=== PATIENT | female | born 1955 | race Caucasian/White ===

== ENCOUNTER 2018-08-31 09:46 | Emergency (ER) | payer MEDICARE, SELFPAY ==
[2018-08-31] VITALS (8 sets, daily range): BP systolic 98–131; BP diastolic 68–78; PULSE 71–79; RESP 13–21; TEMP 37.4; O2SAT 96–100; BMI 21.1
--- NOTE | 2018-08-31 09:48 | ED.SYNCOPE ---
HPI - Syncope General Chief Complaint: Syncope Stated Complaint: Syncope Time Seen by Provider: 08/31/18 09:47 Source: patient and EMS Mode of arrival: EMS Limitations: no limitations History of Present Illness HPI narrative: 63-year-old nonsmoking female presents with her in the chief complaint of an episode of syncope this morning. She presented by EMS after feeling a bit funny this morning and having a syncopal episode in which she fell and hit her head on an unknown hard object. She suffered a laceration to her forehead but denies any other injury. She takes no blood thinners, denies current use of alcohol or any type of distracting injury. She states that yesterday she had her tetanus updated and felt a bit queasy upon waking this morning and when drinking coffee her nausea increased. She states that she started walking to the bathroom and the next thing she knew she woke up on the ground. She states that she did not have any chest pain leading up to this. She denies using the toilet during sepsis air. She states that she does get dizzy and lightheaded on occasion when standing up too quickly and is very nervous of needles. She did fly from [employer] [employer] relatively recently. She denies any vomiting or diarrhea. She denies any new medications or dietary change MD complaint: loss of consciousness Onset (ago): minute(s) -: second(s) Prodromal symptoms: lightheaded and nausea/vomiting Witnessed: no Injuries sustained associated with event: head Current symptoms: none and nausea Related Data Previous Rx's Medication Instructions Recorded ondansetron 4 mg PO TID-QID PRN #10 tab 08/31/18 Allergies Allergy/AdvReac Type Severity Reaction Status Date / Time No Known Drug Allergies Allergy Verified 08/31/18 11:06 Review of Systems Review of Systems All systems reviewed & are unremarkable except as noted in HPI and below Constitutional Denies chills, Denies fever(s), Denies lethargy and Denies weakness Eyes Denies change in vision, Denies eye discharge, Denies irritation and Denies loss of vision ENT Ears, Nose, Mouth, and Throat: Denies change in voice, Denies neck pain and Denies sore throat Cardiovascular Denies chest pain, Reports syncope, Denies irregular heart rhythm, Denies lightheadedness, Denies palpitations, Denies dyspnea, Denies dyspnea on exertion and Denies orthopnea Respiratory Denies cough, Denies dyspnea, Denies dyspnea on exertion and Denies wheezing Gastrointestinal Gastrointestinal: Denies abdominal pain, Denies change in bowel habits, Denies diarrhea, Denies nausea and Denies vomiting Genitourinary Denies hematuria, Denies flank pain, Denies urinary incontinence and Denies urinary urgency Musculoskeletal Denies neck pain Integumentary/Breasts Denies pruritus, Denies erythema, Denies rash and Reports wounds Neurologic Denies confusion, Reports syncope, Denies loss of vision and Denies weakness Psychiatric Denies anxiety, Denies confusion, Denies depression, Denies homicidal ideation and Denies suicidal ideation Endocrine Denies palpitations Hematologic/Lymphatic Denies easy bruising Allergic/Immunologic Denies wheezing [facility] Medical History Asthma (Chronic Unknown) Acne (Resolved) Chickenpox (Resolved) Measles (Resolved) Surgical History Hx of section (Resolved ~1989) Family History Father No problems noted. Mother No problems noted. Social History Smoking Status: Never smoker Exam Narrative Exam Narrative: 63-year-old female, a bit anxious with mild active bleeding from a forehead laceration Initial Vital Signs Initial Vital Signs: Vital Signs Temperature 99.3 F 08/31/18 09:40 Pulse Rate 76 08/31/18 09:40 Respiratory Rate 15 08/31/18 09:40 Blood Pressure 127/75 08/31/18 09:40 Pulse Oximetry 100 08/31/18 09:40 Const General: cooperative, well developed, in distress and anxious Nutritional Appearance: well nourished Orientation: alert, awake, oriented x3 and not confused HENCA Head: laceration (3cm laceration R upper forehead entering hairline) and scalp lesion Ears: external ears normal and TM's normal bilaterally Nose: external nose normal and No nasal discharge Face and sinus: sinuses nontender, face symmetric, no sinus tenderness and No dry mucous membranes Mouth: oral mucosae normal and moist mucous membranes Teeth and gingiva: dentition normal Throat: tonsils normal and uvula midline Eyes General: appearance normal, both eyes and all related structures Eyelids: eyelids normal Conjunctivae: conjunctivae normal Sclera: sclerae normal Pupils: PERRL EOM: EOM intact bilaterally Neck Neck: normal visual inspection, trachea midline, No lymphadenopathy, No midline deformity and No JVD Lymphatic: No lymphedema Chest Chest: normal inspection of the chest Resp Effort & Inspection: normal respiratory effort, able to speak in complete sentences, no respiratory distress and no use of accessory muscles Auscultation: clear to auscultation bilaterally, no rales, no rhonchi and no wheezes Cardio Rate: regular rate Rhythm: regular rhythm Heart Sounds: no click, no gallops, no murmurs and no rubs Pulses: normal peripheral pulses Back/Spine/Pelvis Back: No CVA tenderness Cervical Spine: cervical ROM normal and No pain with cervical ROM Thoracic/Lumbar Spine: thoracic and lumbar spine normal to inspection Skin Trauma: no lacerations or abrasions Neuro General: alert, oriented x3, gait normal and no focal motor deficits Speech: speech normal Extrem General: full ROM, no clubbing, cyanosis or edema, no pedal edema and no calf tenderness Psych Appearance: well kempt Mental Status: mental status grossly normal Attitude: cooperative Thought Content: normal and suicidality Judgment: judgment good Procedures Laceration Repair Laceration 1: Site: scalp Size (cm): 3 Description: stellate Depth: simple, single layer Local Anesthetic: lidocaine 1% and with epi Amount of anesthesia used (mL): 5 Pre-repair: wound explored, irrigated extensively and deep structures intact Skin layer closed with: other (emiliano - laceration at edge of hair line, and enters hairline) Scores PERC Score Age greater than or equal to 50 years: Yes Heart rate greater than or equal to 100 bpm: No Room Air O2 Sat less than 95%: No Unilateral leg swelling: No Recent trauma or surgery: No Hemoptysis: No Prior PE or DVT: No Hormone Use: No Total PERC Score: 1 Wells' Criteria for PE Clinical signs and symptoms of PE: No PE is #1 Dx or equally likely: No Heart rate > 100: No Immobilization at least 3 days or surg in previous 4 weeks: No History of PE or DVT: No Hemoptysis: No Malignancy w/Treatment within 6 months or palliative: No Wells' PE Score total: 0 Course Course Narrative: Patient initially is very nervous of needles and refuses an IV despite my recommendation. No via IV initially placed at the patient's request but given elevation in D-dimer, recent travel, low-grade fever I talked with her about pursuing the diagnosis of pulmonary embolism and she reluctantly agreed Orders Ordered: ED Orders 08/31/18 10:08 EKG-12 Lead Stat 08/31/18 10:09 CT head/brain wo con Stat 08/31/18 10:16 Complete Blood Count AUTO DIFF Stat Comprehensive Metabolic Panel Stat D Dimer Stat Magnesium Stat Troponin & CK Cardiac Panel Stat 08/31/18 10:59 CT angio chest PE protocol Stat Discontinued Medications Sodium Chloride (Normal Saline 0.9%) 1,000 mls @ 1,000 mls/hr IV BOLUS ONE Stop: 08/31/18 11:58 Last Infusion: 08/31/18 12:36 Dose: 0 mls/hr Admin: 08/31/18 11:50 Dose: 1,000 mls/hr Ondansetron HCl (Zofran) 4 mg IV Q4HR PRN PRN Reason: Nausea And Vomiting Last Admin: 08/31/18 11:50 Dose: 4 mg Vital Signs - 8 hr 08/31/18 11:00 08/31/18 11:30 08/31/18 12:03 Pulse Rate 71 75 74 Respiratory Rate 13 14 15 Blood Pressure Blood Pressure [Right Arm] 131/75 113/68 104/73 Pulse Oximetry 100 98 98 08/31/18 12:34 08/31/18 13:05 Pulse Rate 79 79 Respiratory Rate 21 20 Blood Pressure 114/70 Blood Pressure [Right Arm] 114/70 Pulse Oximetry 99 99 MDM - Syncope Differential Diagnosis Likely syncope due to orthostatic hypotension, vasovagal syncope, complete atrioventricular block, subarachnoid hemorrhage, pulmonary embolism and dehydration Medical Records Attestation: I reviewed the patient's medical records. Lab Data Attestation: I reviewed the patient's lab results. Result diagrams: 08/31/18 10:16 08/31/18 10:16 Lab Results 08/31/18 08/31/18 08/31/18 Range/Units 10:16 10:16 10:16 WBC 5.9 (4.5-11.0) X10^3/uL RBC 4.27 (4.0-5.2) X10^6/uL Hgb 13.7 (12.0-16.0) g/dL Hct 40.3 (36-46) % MCV 94.6 (80-100) fL MCH 32.2 (26-34) PG MCHC 34.1 (30-36) % RDW 13.1 (11.6-14.8) % Plt Count 139 L (150-400) X10^3/uL Neut % (Auto) 84.0 H (50-75) % Lymph % (Auto) 6.3 L (25-40) % [place] % (Auto) 7.8 (3-14) % Eos % (Auto) 1.4 L (2-4) % Baso % (Auto) 0.5 (0-2) % Neut # (Auto) 4900 (7531-4550) /uL D-Dimer 614 H (<230) ng/mL Sodium 140 (137-145) mmol/L Potassium 4.5 (3.4-5.1) mmol/L Chloride 102 (98-107) mmol/L Carbon Dioxide 27 (22-32) mmol/L BUN 15 (7-17) mg/dL Creatinine 0.80 (0.52-1.04) mg/dL Estimated GFR > 60.0 (>60) mL/min BUN/Creatinine Ratio 18.8 (6-22) Glucose 102 (80-110) mg/dL Calcium 9.2 (8.4-10.2) mg/dL Magnesium 2.0 (1.6-2.3) mg/dL Total Bilirubin 1.1 (0.2-1.3) mg/dL AST 27 (14-36) IU/L ALT 22 (9-52) IU/L Alkaline Phosphatase 62 (38-126) U/L Total Creatine Kinase 72 (30-135) U/L CK-MB (CK-2) TNP CK-MB (CK-2) Rel Index TNP Troponin I < 0.012 (0.01-0.034) ng/mL Total Protein 7.3 (6.3-8.2) g/dL Albumin 4.4 (3.5-5.0) g/dL Globulin 2.9 (1.7-4.1) g/dL Albumin/Globulin Ratio 1.5 (1.0-2.8) Imaging Data CT scan - head: Radiologist's impression: [facility] DATE TYPE STATUS AUTHOR 08/31/18 10:59 Sami Panda 08/31/18 10:09 FarzadSami Li Miramontes 63, F1 [facility] ER, ED - Main ED: R08 172.72cm 63.049kg BSA: 1.75m? BMI: 21.1kg/m? Syncope Search Chart No Known Drug Allergies ONSET Today 13:05 [place] [address] CT Scan Report Signed Patient: Li Miramontes CMR#: [id number] : [id number]:[id number] Age/Sex: 63 / FDate of Service: 08/31/18 Loc: ED Accession Number: [id number] Procedure: CT head/brain wo con Ordering Provider: Geo Hunt D.O. PROCEDURE: CT HEAD/BRAIN WO CON INDICATIONS: syncope w/head injury TECHNIQUE: Noncontrast 4.5 mm thick angled axial sections acquired from the foramen magnum to the vertex, with coronal and sagittal reformats. For radiation dose reduction, the following was used: automated exposure control, adjustment of mA and/or kV according to patient size. COMPARISON: None. FINDINGS: Image quality: Excellent. CSF spaces: Basal cisterns are patent. No extra-axial fluid collections. The ventricles are symmetric in size and shape. Brain: No intracranial bleeds or masses. There is cerebral volume loss for age, with resultant ventricular and sulcal prominence. There are periventricular and deep white matter chronic small vessel ischemic changes. There is intracranial internal carotid artery atherosclerosis. Skull and face: Calvarium and visualized facial bones appear intact, without suspicious lesions. Right frontal parietal scalp laceration is seen. Sinuses: Visualized sinuses and mastoids are clear. IMPRESSION: 1. No CT evidence of acute intracranial pathology. 2. Right frontal scalp laceration. No gross acute skull fracture. Orbital carcamo are intact. Dictated by: Sami Panda M.D. on 08/31/2018 at 10:43 Approved by: Sami Panda M.D. on 08/31/2018 at 10:44 CT scan - chest: Radiologist's impression: Li Miramontes - Patient Chart Chart [facility] Diagn[facility] DATE TYPE STATUS AUTHOR 08/31/18 10:59 Sami Panda 08/31/18 10:09 Sami Panda Mary C 63, F1 [facility] ER, ED - Main ED: R08 172.72cm 63.049kg BSA: 1.75m? BMI: 21.1kg/m? Syncope Search Chart No Known Drug Allergies ONSET Today 13:[address] [address] [address] Scan Report Signed Patient: Li Miramontes CMR#: [id number] : [id number]:[id number] Age/Sex: 63 / FDate of Service: 08/31/18 Loc: ED Accession Number: [id number] Procedure: CT angio chest PE protocol Ordering Provider: Geo Hunt D.O. PROCEDURE: CT ANGIO CHEST PE PROTOCOL INDICATIONS: syncope, flight from [place], elevated DDimer TECHNIQUE: After the administration of intravenous contrast, 2 mm thick sections acquired from the pulmonary apices to the posterior costophrenic angles. 3-dimensional maximum intensity projection (MIP) coronal and sagittal reformats were then acquired through the thorax. For radiation dose reduction, the following was used: automated exposure control, adjustment of mA and/or kV according to patient size. COMPARISON: None. FINDINGS: Image quality: Excellent. Pulmonary arteries: Pulmonary arteries are normal in size, and demonstrate no intraluminal filling defects to suggest central pulmonary embolism. Lungs and pleura: Lungs are clear. No pleural effusions or pneumothorax. Central and peripheral airways are patent. Mediastinum: Heart size is enlarged, without pericardial effusion. No mediastinal or hilar adenopathy. Thoracic aorta is normal in caliber and enhancement. Esophagus is normal in caliber, with a small hiatal hernia. Bones and chest wall: No suspicious bony lesions. Ribs and thoracic spine appear intact throughout. Thyroid gland is within normal limits. No supraclavicular adenopathy. Mildly prominent bilateral axillary lymph nodes are seen measures up to 8 mm in short axis diameter. Abdomen: Visualized upper abdominal solid organs appear normal in the early arterial phase of enhancement. Well-circumscribed fluid density structure in posterior segment of right hepatic lobe is seen measures 2.5 x 2.4 cm in size and likely represent hepatic cyst. IMPRESSION: 1. No evidence of pulmonary emboli. No thoracic aortic aneurysm or gross dissection. Mild cardiomegaly. 2. No mediastinal or hilar adenopathy. Nonspecific borderline prominent bilateral axillary lymph nodes. 3. Small size hiatal hernia. 2.5 x 2.4 cm right hepatic cyst. Dictated by: Sami Panda M.D. on 08/31/2018 11:32 Approved by: Sami Panda M.D. on 08/31/2018 at 11:38 ECG Data Attestation: I personally reviewed and interpreted this ECG as follows: MDM Narrative Medical decision making narrative: Patient with syncope after feeling a bit flushed this morning. She often gets dizzy upon standing and was nauseated this morning and had a smaller than normal breakfast. Most likely syncope of multiple factors including orthostasis, dehydration, low blood sugar. More serious causes such as SAH, arrhythmia or PE considered but thought less likely given diagnostic imaging, labs, and cardiac monitoring. Patient given thorough return precautions and was able to verbalize understanding of these precautions, with her at the bedside Discharge Plan Departure Patient Disposition: Home Clinical Impression: Syncope, Laceration of scalp Discharge Date/Time: 08/31/18 13:07 Interventions: ED Discharge Assessment Last Done: 08/31/18 13:05 Instructions: DI for Concussion, DI for Syncope in Adults (Fainting), DI for Laceration Repair Activity Restrictions/Additional Instructions: You may have a slight concussion and will likely have a mild headache and some nausea for a few days. Avoiding highly stimulating activities and even TV or computers may be helpful in minimizing your symptoms. Avoid activities that will put you at risk for another head injury for at least a week. You can take tylenol or motrin for headache or the prescription provided for nausea/vomiting. Return for worsening or persistent symptoms Please keep the wound clean and dry to the best of your ability. Please monitor for signs of infection such as redness to the skin or increasing pain. Have the emiliano removed by your doctor in about 7 days. If you are unable to get into your doctor, we would be happy to remove the emiliano in that same timeframe. A prescription for Zofran has been electronically transmitted to [facility] in [employer] on your behalf Prescriptions: New ondansetron 4 mg tablet,disintegrating 4 mg PO TID-QID PRN (Reason: nausea and vomiting) Qty: 10 RF: 0 Referrals: Avani Greene DO [Physician] -
--- NOTE | 2018-08-31 10:09 | DI.CT.S_ITS ---
PROCEDURE: CT HEAD/BRAIN WO CON INDICATIONS: syncope w/head injury TECHNIQUE: Noncontrast 4.5 mm thick angled axial sections acquired from the foramen magnum to the vertex, with coronal and sagittal reformats. For radiation dose reduction, the following was used: automated exposure control, adjustment of mA and/or kV according to patient size. COMPARISON: None. FINDINGS: Image quality: Excellent. CSF spaces: Basal cisterns are patent. No extra-axial fluid collections. The ventricles are symmetric in size and shape. Brain: No intracranial bleeds or masses. There is cerebral volume loss for age, with resultant ventricular and sulcal prominence. There are periventricular and deep white matter chronic small vessel ischemic changes. There is intracranial internal carotid artery atherosclerosis. Skull and face: Calvarium and visualized facial bones appear intact, without suspicious lesions. Right frontal parietal scalp laceration is seen. Sinuses: Visualized sinuses and mastoids are clear. IMPRESSION: 1. No CT evidence of acute intracranial pathology. 2. Right frontal scalp laceration. No gross acute skull fracture. Orbital carcamo are intact. Dictated by: Sami Panda M.D. on 08/31/2018 at 10:43 Approved by: Sami Panda M.D. on 08/31/2018 at 10:44
--- NOTE | 2018-08-31 10:12 | ED_ITS ---
HPI - Syncope General Chief Complaint: Syncope Stated Complaint: Syncope Time Seen by Provider: 08/31/18 09:47 Source: patient and EMS Mode of arrival: EMS Limitations: no limitations History of Present Illness HPI narrative: 63-year-old nonsmoking female presents with her in the chief complaint of an episode of syncope this morning. She presented by EMS after feeling a bit funny this morning and having a syncopal episode in which she fell and hit her head on an unknown hard object. She suffered a laceration to her forehead but denies any other injury. She takes no blood thinners, denies current use of alcohol or any type of distracting injury. She states that yesterday she had her tetanus updated and felt a bit queasy upon waking this morning and when drinking coffee her nausea increased. She states that she started walking to the bathroom and the next thing she knew she woke up on the ground. She states that she did not have any chest pain leading up to this. She denies using the toilet during sepsis air. She states that she does get dizzy and lightheaded on occasion when standing up too quickly and is very nervous of needles. She did fly from [employer] relatively recently. She denies any vomiting or diarrhea. She denies any new medications or dietary change MD complaint: loss of consciousness Onset (ago): minute(s) -: second(s) Prodromal symptoms: lightheaded and nausea/vomiting Witnessed: no Injuries sustained associated with event: head Current symptoms: none and nausea Related Data Previous Rx's Medication Instructions Recorded ondansetron 4 mg PO TID-QID PRN #10 tab 08/31/18 Allergies Allergy/AdvReac Type Severity Reaction Status Date / Time No Known Drug Allergies Allergy Verified 08/31/18 11:06 Review of Systems Review of Systems All systems reviewed & are unremarkable except as noted in HPI and below Constitutional Denies chills, Denies fever(s), Denies lethargy and Denies weakness Eyes Denies change in vision, Denies eye discharge, Denies irritation and Denies loss of vision ENT Ears, Nose, Mouth, and Throat: Denies change in voice, Denies neck pain and Denies sore throat Cardiovascular Denies chest pain, Reports syncope, Denies irregular heart rhythm, Denies lightheadedness, Denies palpitations, Denies dyspnea, Denies dyspnea on exertion and Denies orthopnea Respiratory Denies cough, Denies dyspnea, Denies dyspnea on exertion and Denies wheezing Gastrointestinal Gastrointestinal: Denies abdominal pain, Denies change in bowel habits, Denies diarrhea, Denies nausea and Denies vomiting Genitourinary Denies hematuria, Denies flank pain, Denies urinary incontinence and Denies urinary urgency Musculoskeletal Denies neck pain Integumentary/Breasts Denies pruritus, Denies erythema, Denies rash and Reports wounds Neurologic Denies confusion, Reports syncope, Denies loss of vision and Denies weakness Psychiatric Denies anxiety, Denies confusion, Denies depression, Denies homicidal ideation and Denies suicidal ideation Endocrine Denies palpitations Hematologic/Lymphatic Denies easy bruising Allergic/Immunologic Denies wheezing [facility] Medical History Asthma (Chronic Unknown) Acne (Resolved) Chickenpox (Resolved) Measles (Resolved) Surgical History Hx of section (Resolved ~1989) Family History Father No problems noted. Mother No problems noted. Social History Smoking Status: Never smoker Exam Narrative Exam Narrative: 63-year-old female, a bit anxious with mild active bleeding from a forehead laceration Initial Vital Signs Initial Vital Signs: Vital Signs Temperature 99.3 F 08/31/18 09:40 Pulse Rate 76 08/31/18 09:40 Respiratory Rate 15 08/31/18 09:40 Blood Pressure 127/75 08/31/18 09:40 Pulse Oximetry 100 08/31/18 09:40 Const General: cooperative, well developed, in distress and anxious Nutritional Appearance: well nourished Orientation: alert, awake, oriented x3 and not confused HENCA Head: laceration (3cm laceration R upper forehead entering hairline) and scalp lesion Ears: external ears normal and TM's normal bilaterally Nose: external nose normal and No nasal discharge Face and sinus: sinuses nontender, face symmetric, no sinus tenderness and No dry mucous membranes Mouth: oral mucosae normal and moist mucous membranes Teeth and gingiva: dentition normal Throat: tonsils normal and uvula midline Eyes General: appearance normal, both eyes and all related structures Eyelids: eyelids normal Conjunctivae: conjunctivae normal Sclera: sclerae normal Pupils: PERRL EOM: EOM intact bilaterally Neck Neck: normal visual inspection, trachea midline, No lymphadenopathy, No midline deformity and No JVD Lymphatic: No lymphedema Chest Chest: normal inspection of the chest Resp Effort & Inspection: normal respiratory effort, able to speak in complete sentences, no respiratory distress and no use of accessory muscles Auscultation: clear to auscultation bilaterally, no rales, no rhonchi and no wheezes Cardio Rate: regular rate Rhythm: regular rhythm Heart Sounds: no click, no gallops, no murmurs and no rubs Pulses: normal peripheral pulses Back/Spine/Pelvis Back: No CVA tenderness Cervical Spine: cervical ROM normal and No pain with cervical ROM Thoracic/Lumbar Spine: thoracic and lumbar spine normal to inspection Skin Trauma: no lacerations or abrasions Neuro General: alert, oriented x3, gait normal and no focal motor deficits Speech: speech normal Extrem General: full ROM, no clubbing, cyanosis or edema, no pedal edema and no calf tenderness Psych Appearance: well kempt Mental Status: mental status grossly normal Attitude: cooperative Thought Content: normal and suicidality Judgment: judgment good Procedures Laceration Repair Laceration 1: Site: scalp Size (cm): 3 Description: stellate Depth: simple, single layer Local Anesthetic: lidocaine 1% and with epi Amount of anesthesia used (mL): 5 Pre-repair: wound explored, irrigated extensively and deep structures intact Skin layer closed with: other (emiliano - laceration at edge of hair line, and enters hairline) Scores PERC Score Age greater than or equal to 50 years: Yes Heart rate greater than or equal to 100 bpm: No Room Air O2 Sat less than 95%: No Unilateral leg swelling: No Recent trauma or surgery: No Hemoptysis: No Prior PE or DVT: No Hormone Use: No Total PERC Score: 1 Wells' Criteria for PE Clinical signs and symptoms of PE: No PE is #1 Dx or equally likely: No Heart rate > 100: No Immobilization at least 3 days or surg in previous 4 weeks: No History of PE or DVT: No Hemoptysis: No Malignancy w/Treatment within 6 months or palliative: No Wells' PE Score total: 0 Course Course Narrative: Patient initially is very nervous of needles and refuses an IV despite my recommendation. No via IV initially placed at the patient's request but given elevation in D-dimer, recent travel, low-grade fever I talked with her about pursuing the diagnosis of pulmonary embolism and she reluctantly agreed Orders Ordered: ED Orders 08/31/18 10:08 EKG-12 Lead Stat 08/31/18 10:09 CT head/brain wo con Stat 08/31/18 10:16 Complete Blood Count AUTO DIFF Stat Comprehensive Metabolic Panel Stat D Dimer Stat Magnesium Stat Troponin & CK Cardiac Panel Stat 08/31/18 10:59 CT angio chest PE protocol Stat Discontinued Medications Sodium Chloride (Normal Saline 0.9%) 1,000 mls @ 1,000 mls/hr IV BOLUS ONE Stop: 08/31/18 11:58 Last Infusion: 08/31/18 12:36 Dose: 0 mls/hr Admin: 08/31/18 11:50 Dose: 1,000 mls/hr Ondansetron HCl (Zofran) 4 mg IV Q4HR PRN PRN Reason: Nausea And Vomiting Last Admin: 08/31/18 11:50 Dose: 4 mg Vital Signs - 8 hr 08/31/18 11:00 08/31/18 11:30 08/31/18 12:03 Pulse Rate 71 75 74 Respiratory Rate 13 14 15 Blood Pressure Blood Pressure [Right Arm] 131/75 113/68 104/73 Pulse Oximetry 100 98 98 08/31/18 12:34 08/31/18 13:05 Pulse Rate 79 79 Respiratory Rate 21 20 Blood Pressure 114/70 Blood Pressure [Right Arm] 114/70 Pulse Oximetry 99 99 MDM - Syncope Differential Diagnosis Likely syncope due to orthostatic hypotension, vasovagal syncope, complete atrioventricular block, subarachnoid hemorrhage, pulmonary embolism and dehydration Medical Records Attestation: I reviewed the patient's medical records. Lab Data Attestation: I reviewed the patient's lab results. Result diagrams: 08/31/18 10:16 08/31/18 10:16 Lab Results 08/31/18 08/31/18 08/31/18 Range/Units 10:16 10:16 10:16 WBC 5.9 (4.5-11.0) X10^3/uL RBC 4.27 (4.0-5.2) X10^6/uL Hgb 13.7 (12.0-16.0) g/dL Hct 40.3 (36-46) % MCV 94.6 (80-100) fL MCH 32.2 (26-34) PG MCHC 34.1 (30-36) % RDW 13.1 (11.6-14.8) % Plt Count 139 L (150-400) X10^3/uL Neut % (Auto) 84.0 H (50-75) % Lymph % (Auto) 6.3 L (25-40) % [place] % (Auto) 7.8 (3-14) % Eos % (Auto) 1.4 L (2-4) % Baso % (Auto) 0.5 (0-2) % Neut # (Auto) 4900 (9211-5661) /uL D-Dimer 614 H (<230) ng/mL Sodium 140 (137-145) mmol/L Potassium 4.5 (3.4-5.1) mmol/L Chloride 102 (98-107) mmol/L Carbon Dioxide 27 (22-32) mmol/L BUN 15 (7-17) mg/dL Creatinine 0.80 (0.52-1.04) mg/dL Estimated GFR > 60.0 (>60) mL/min BUN/Creatinine Ratio 18.8 (6-22) Glucose 102 (80-110) mg/dL Calcium 9.2 (8.4-10.2) mg/dL Magnesium 2.0 (1.6-2.3) mg/dL Total Bilirubin 1.1 (0.2-1.3) mg/dL AST 27 (14-36) IU/L ALT 22 (9-52) IU/L Alkaline Phosphatase 62 (38-126) U/L Total Creatine Kinase 72 (30-135) U/L CK-MB (CK-2) TNP CK-MB (CK-2) Rel Index TNP Troponin I < 0.012 (0.01-0.034) ng/mL Total Protein 7.3 (6.3-8.2) g/dL Albumin 4.4 (3.5-5.0) g/dL Globulin 2.9 (1.7-4.1) g/dL Albumin/Globulin Ratio 1.5 (1.0-2.8) Imaging Data CT scan - head: Radiologist's impression: [facility] DATE TYPE STATUS AUTHOR 08/31/18 10:59 Sami Panda 08/31/18 10:09 FarzadSami Li Miramontes 63, F1 [facility], ED - Main ED: R08 172.72cm 63.049kg BSA: 1.75m? BMI: 21.1kg/m? Syncope Search Chart No Known Drug Allergies ONSET Today 13:05 [place] [address] CT Scan Report Signed Patient: Li Miramontes CMR#: [id number] : [id number]:[id number] Age/Sex: 63 / FDate of Service: 08/31/18 Loc: ED Accession Number: [id number] Procedure: CT head/brain wo con Ordering Provider: Geo Hunt D.O. PROCEDURE: CT HEAD/BRAIN WO CON INDICATIONS: syncope w/head injury TECHNIQUE: Noncontrast 4.5 mm thick angled axial sections acquired from the foramen magnum to the vertex, with coronal and sagittal reformats. For radiation dose reduction, the following was used: automated exposure control, adjustment of mA and/or kV according to patient size. COMPARISON: None. FINDINGS: Image quality: Excellent. CSF spaces: Basal cisterns are patent. No extra-axial fluid collections. The ventricles are symmetric in size and shape. Brain: No intracranial bleeds or masses. There is cerebral volume loss for age , with resultant ventricular and sulcal prominence. There are periventricular and deep white matter chronic small vessel ischemic changes. There is intracranial internal carotid artery atherosclerosis. Skull and face: Calvarium and visualized facial bones appear intact, without suspicious lesions. Right frontal parietal scalp laceration is seen. Sinuses: Visualized sinuses and mastoids are clear. IMPRESSION: 1. No CT evidence of acute intracranial pathology. 2. Right frontal scalp laceration. No gross acute skull fracture. Orbital carcamo are intact. Dictated by: Sami Panda M.D. on 08/31/2018 at 10:43 Approved by: Sami Panda M.D. on 08/31/2018 at 10:44 CT scan - chest: Radiologist's impression: Li Miramontes - Patient Chart Chart [facility]er Diagn[facility] DATE TYPE STATUS AUTHOR 08/31/18 10:59 Sami Panda 08/31/18 10:09 Sami Panda Mary C 63, F1 [facility] ER, ED - Main ED: R08 172.72cm 63.049kg BSA: 1.75m? BMI: 21.1kg/m? Syncope Search Chart No Known Drug Allergies ONSET Today 13:[address] [address] [address] Scan Report Signed Patient: Li Miramontes CMR#: [id number] : [id number]:[id number] Age/Sex: 63 / FDate of Service: 08/31/18 Loc: ED Accession Number: [id number] Procedure: CT angio chest PE protocol Ordering Provider: Geo Hunt D.O. PROCEDURE: CT ANGIO CHEST PE PROTOCOL INDICATIONS: syncope, flight from [place], elevated DDimer TECHNIQUE: After the administration of intravenous contrast, 2 mm thick sections acquired from the pulmonary apices to the posterior costophrenic angles. 3-dimensional maximum intensity projection (MIP) coronal and sagittal reformats were then acquired through the thorax. For radiation dose reduction, the following was used: automated exposure control, adjustment of mA and/or kV according to patient size. COMPARISON: None. FINDINGS: Image quality: Excellent. Pulmonary arteries: Pulmonary arteries are normal in size, and demonstrate no intraluminal filling defects to suggest central pulmonary embolism. Lungs and pleura: Lungs are clear. No pleural effusions or pneumothorax. Central and peripheral airways are patent. Mediastinum: Heart size is enlarged, without pericardial effusion. No mediastinal or hilar adenopathy. Thoracic aorta is normal in caliber and enhancement. Esophagus is normal in caliber, with a small hiatal hernia. Bones and chest wall: No suspicious bony lesions. Ribs and thoracic spine appear intact throughout. Thyroid gland is within normal limits. No supraclavicular adenopathy. Mildly prominent bilateral axillary lymph nodes are seen measures up to 8 mm in short axis diameter. Abdomen: Visualized upper abdominal solid organs appear normal in the early arterial phase of enhancement. Well-circumscribed fluid density structure in posterior segment of right hepatic lobe is seen measures 2.5 x 2.4 cm in size and likely represent hepatic cyst. IMPRESSION: 1. No evidence of pulmonary emboli. No thoracic aortic aneurysm or gross dissection. Mild cardiomegaly. 2. No mediastinal or hilar adenopathy. Nonspecific borderline prominent bilateral axillary lymph nodes. 3. Small size hiatal hernia. 2.5 x 2.4 cm right hepatic cyst. Dictated by: Sami Panda M.D. on 08/31/2018 11:32 Approved by: Sami Panda M.D. on 08/31/2018 at 11:38 ECG Data Attestation: I personally reviewed and interpreted this ECG as follows: MDM Narrative Medical decision making narrative: Patient with syncope after feeling a bit flushed this morning. She often gets dizzy upon standing and was nauseated this morning and had a smaller than normal breakfast. Most likely syncope of multiple factors including orthostasis, dehydration, low blood sugar. More serious causes such as SAH, arrhythmia or PE considered but thought less likely given diagnostic imaging, labs, and cardiac monitoring. Patient given thorough return precautions and was able to verbalize understanding of these precautions , with her at the bedside Discharge Plan Departure Patient Disposition: Home Clinical Impression: Syncope, Laceration of scalp Discharge Date/Time: 08/31/18 13:07 Interventions: ED Discharge Assessment Last Done: 08/31/18 13:05 Instructions: DI for Concussion, DI for Syncope in Adults (Fainting), DI for Laceration Repair Activity Restrictions/Additional Instructions: You may have a slight concussion and will likely have a mild headache and some nausea for a few days. Avoiding highly stimulating activities and even TV or computers may be helpful in minimizing your symptoms. Avoid activities that will put you at risk for another head injury for at least a week. You can take tylenol or motrin for headache or the prescription provided for nausea/ vomiting. Return for worsening or persistent symptoms Please keep the wound clean and dry to the best of your ability. Please monitor for signs of infection such as redness to the skin or increasing pain. Have the emiliano removed by your doctor in about 7 days. If you are unable to get into your doctor, we would be happy to remove the emiliano in that same timeframe. A prescription for Zofran has been electronically transmitted to [facility] in [place] on your behalf Prescriptions: New ondansetron 4 mg tablet,disintegrating 4 mg PO TID-QID PRN (Reason: nausea and vomiting) Qty: 10 RF: 0 Referrals: Avani Greene DO [Physician] -
[2018-08-31 10:26] LABS: Add Manual Diff / Slide Review NO; Basophils Percent Auto 0.5 % (0-2); Eosinophils Percent Auto 1.4 % (2-4); Hematocrit 40.3 % (36-46); Hemoglobin 13.7 g/dL (12.0-16.0); Lymphocytes Percent Auto 6.3 % (25-40); Mean Corpuscular HGB Conc 34.1 % (30-36); Mean Corpuscular Hemoglobin 32.2 PG (26-34); Mean Corpuscular Volume 94.6 fL (80-100); Monocytes Percent Auto 7.8 % (3-14); Neutrophils Absolute Auto 4900 /uL (3000-5900); Platelet Count 139 X10^3/uL (150-400); Red Blood Cell Count 4.27 X10^6/uL (4.0-5.2); Red Cell Distribution Width 13.1 % (11.6-14.8); White Blood Cell Count 5.9 X10^3/uL (4.5-11.0)
[2018-08-31 10:35] LABS: D Dimer 614 ng/mL (<230)
[2018-08-31 10:37] LABS: Alanine Aminotransferase 22 IU/L (9-52); Albumin 4.4 g/dL (3.5-5.0); Albumin Globulin Ratio 1.5 (1.0-2.8); Alkaline Phosphatase 62 U/L (38-126); Aspartate Aminotransferase 27 IU/L (14-36); BUN Creatinine Ratio 18.8 (6-22); Bilirubin Total 1.1 mg/dL (0.2-1.3); Blood Urea Nitrogen 15 mg/dL (7-17); Calcium 9.2 mg/dL (8.4-10.2); Carbon Dioxide 27 mmol/L (22-32); Chloride 102 mmol/L (98-107); Creatine Kinase 72 U/L (30-135); Estimated Glomerular Filt Rate > 60.0 mL/min (>60); Globulin 2.9 g/dL (1.7-4.1); Glucose 102 mg/dL (80-110); HEMOLYSIS < 15 (0-50); Potassium 4.5 mmol/L (3.4-5.1); Sodium 140 mmol/L (137-145); Total Protein 7.3 g/dL (6.3-8.2)
[2018-08-31 10:49] LABS: Troponin I < 0.012 ng/mL (0.01-0.034)
--- NOTE | 2018-08-31 10:59 | DI.CT.S_ITS ---
PROCEDURE: CT ANGIO CHEST PE PROTOCOL INDICATIONS: syncope, flight from [place], elevated DDimer TECHNIQUE: After the administration of intravenous contrast, 2 mm thick sections acquired from the pulmonary apices to the posterior costophrenic angles. 3-dimensional maximum intensity projection (MIP) coronal and sagittal reformats were then acquired through the thorax. For radiation dose reduction, the following was used: automated exposure control, adjustment of mA and/or kV according to patient size. COMPARISON: None. FINDINGS: Image quality: Excellent. Pulmonary arteries: Pulmonary arteries are normal in size, and demonstrate no intraluminal filling defects to suggest central pulmonary embolism. Lungs and pleura: Lungs are clear. No pleural effusions or pneumothorax. Central and peripheral airways are patent. Mediastinum: Heart size is enlarged, without pericardial effusion. No mediastinal or hilar adenopathy. Thoracic aorta is normal in caliber and enhancement. Esophagus is normal in caliber, with a small hiatal hernia. Bones and chest wall: No suspicious bony lesions. Ribs and thoracic spine appear intact throughout. Thyroid gland is within normal limits. No supraclavicular adenopathy. Mildly prominent bilateral axillary lymph nodes are seen measures up to 8 mm in short axis diameter. Abdomen: Visualized upper abdominal solid organs appear normal in the early arterial phase of enhancement. Well-circumscribed fluid density structure in posterior segment of right hepatic lobe is seen measures 2.5 x 2.4 cm in size and likely represent hepatic cyst. IMPRESSION: 1. No evidence of pulmonary emboli. No thoracic aortic aneurysm or gross dissection. Mild cardiomegaly. 2. No mediastinal or hilar adenopathy. Nonspecific borderline prominent bilateral axillary lymph nodes. 3. Small size hiatal hernia. 2.5 x 2.4 cm right hepatic cyst. Dictated by: Sami Panda M.D. on 08/31/2018 11:32 Approved by: Sami Panda M.D. on 08/31/2018 at 11:38
[2018-08-31] MEDS: SODIUM CHLORIDE 0.9% 1,000 ML 1000 ML IV (11:50)
[2018-08-31] MEDS: ONDANSETRON 4 MG/2 ML INJ IV (11:50)
== END 2018-08-31 13:07 | disposition home or self-care (01) ==
PROVIDERS: Emergency Provider Emergency Medicine
DX: S01.01XA Laceration without foreign body of scalp, initial encounter (principal); R55 Syncope and collapse; W18.30XA Fall on same level, unspecified, initial encounter
CPT/HCPCS: 36415; 70450; 71275; 80053; 82550; 83735; 84484; 85025; 85379; 93005; 93010; 93041; 96361; 96374; 99285; J2405; Q9967

== ENCOUNTER → 2021-07-13 10:50 | Outpatient (CLI) | payer MEDICARE, SELFPAY ==
--- NOTE | 2021-07-13 | DI.RAD.S_ITS ---
PROCEDURE: XR DEXA AXIAL SKELETON INDICATIONS: ROUTINE SCREENING COMPARISON: None. FINDINGS: This blank DEXA report has been sent in error by the PACS system. The correct and complete report will be forthcoming in 1-2 days. Thank you for your patience and understanding. Dictated by: Nathalie Jaramillo MD, PhD on 07/13/2021 at 16:52 Approved by: Nathalie Jaramillo MD, PhD on 07/13/2021 at 16:52
--- NOTE | 2021-07-13 | DI.MG.S_ITS ---
BILATERAL DIGITAL SCREENING MAMMOGRAM 3D/2D WITH CAD: 07/13/2021 CLINICAL: Routine screening. No prior exams were available for comparison. The tissue of both breasts is predominantly fatty. Current study was also evaluated with a Computer Aided Detection (CAD) system. There are benign calcifications in the right breast. There is a mole marker on the left breast. No significant masses, calcifications, or other findings are seen in either breast. IMPRESSION: BENIGN There is no mammographic evidence of malignancy. A 1 year screening mammogram is recommended. This exam was interpreted at Station ID: [id number]. NOTE: For mammograms, a report in lay terms will be sent to the patient. Approximately 15% of breast malignancies will not be visualized mammographically. In the management of a palpable breast mass, a negative mammogram must not discourage biopsy of a clinically suspicious lesion. Electronically Signed By: Amarjit Leon acr/manuel:07/13/2021 12:07:53 letter sent: Normal Exam ACR BI-RADS Category 2: Benign Finding(s) [id number]
== END ==
PROVIDERS: PCP Internal Medicine; Referring Provider Internal Medicine; Visit Provider Internal Medicine
DX: Z12.31 Encounter for screening mammogram for malignant neoplasm of breast (principal); M81.0 Age-related osteoporosis without current pathological fracture; Z78.0 Asymptomatic menopausal state
CPT/HCPCS: 77063; 77067; 77080

== ENCOUNTER → 2023-06-12 09:48 | Outpatient (CLI) | payer MEDICARE, SELFPAY ==
--- NOTE | 2023-06-12 | DI.MG.S_ITS ---
BILATERAL DIGITAL SCREENING MAMMOGRAM 3D/2D WITH CAD: 06/12/2023 CLINICAL: Routine screening. Comparison is made to exam dated: 07/13/2021 mammogram - [facility]. Both breasts are extremely dense, which lowers the sensitivity of mammography (category d />75% glandular tissue). Current study was also evaluated with a Computer Aided Detection (CAD) system. There are benign calcifications in the right breast. There is a mole marker on the left breast. No significant masses, calcifications, or other findings are seen in either breast. There has been no significant interval change. IMPRESSION: BENIGN There is no mammographic evidence of malignancy. A 1 year screening mammogram is recommended. Based on the Tyrer Cuzick model (a risk assessment model) the patient's lifetime risk is 15.3% and her 10 year risk is 9.2%. According to the ACR, ACS, and NCCN guidelines, an annual breast MRI exam along with mammogram is recommended if the patient's lifetime risk is 20% or greater. This exam was interpreted at Station ID: [id number]. NOTE: For mammograms, a report in lay terms will be sent to the patient. Approximately 15% of breast malignancies will not be visualized mammographically. In the management of a palpable breast mass, a negative mammogram must not discourage biopsy of a clinically suspicious lesion. Electronically Signed By: Karlee parker/manuel:06/12/2023 11:35:20 letter sent: Normal Exam ACR BI-RADS Category 2: Benign Finding(s) 3342F
--- NOTE | 2023-06-12 | DI.RAD.S_ITS ---
Bone Density Report Name: ZULEIMA QUIROS Age: 67 Sex: Female Ethnicity: White Date of : 1955 Indication: osteopenia; Referring Provider: MINDY CLARK Study: Bone densitometry was performed. Exam Date: June 12, 2023 Accession number: [id number] Bone Density: Region BMD T-score Z-score Classification AP Spine(L1-L4) 0.807 -2.2 -0.1 Osteopenia Femoral Neck (Left) 0.607 -2.2 -0.4 Osteopenia Total Hip (Left) 0.756 -1.5 0.0 Osteopenia Femoral Neck (Right) 0.542 -2.8 -1.0 Osteoporosis Total Hip (Right) 0.765 -1.5 0.0 Osteopenia Total Hip Mean 0.761 -1.5 0.0 Osteopenia World Health Organization criteria for BMD impression classify patients as: Normal (T-score at or above -1.0), Osteopenia (T-score between -1.0 and -2.5), or Osteoporosis (T-score at or below -2.5). 10-year Fracture Risk: FRAX not reported because: Some T-score for Spine Total or Hip Total or Femoral Neck at or below -2.5 Previous Exams: -- Region Exam Age BMD T-score BMD Change BMD Change Date g/cm2 vs Baseline vs Previous -- AP Spine (L1-L4) 06/12/2023 67 0.807 -2.2 0.004 (0.5%)# 0.004 (0.5%)# 07/13/2021 65 0.803 -2.2 Total Hip(Left) 06/12/2023 67 0.756 -1.5 0.050 (7.1%)# 0.050 (7.1%)# 07/13/2021 65 0.706 -1.9 Total Hip(Right) 06/12/2023 67 0.765 -1.5 0.093 (13.8%)# 0.093 (13.8%)# 07/13/2021 65 0.672 -2.2 -- *Denotes significance at 95% confidence level, LSC for AP Spine = 0.022 g/cm2, LSC for Total Hip = 0.027 g/cm2 # Denotes dissimilar scan types or analysis methods Impression: The patient has osteoporosis, based on the Right Femoral Neck T-score. No significant bone loss was observed. Discussion: INCREASED RISK OF FRACTURE. BONE DENSITY IS UNDESIRABLY LOW AT ONE OR MORE SKELETAL SITES, CONSISTENT WITH POSTMENOPAUSAL OSTEOPOROSIS. This patient's lowest T-score meets the World Health Organization's (WHO) criteria for osteoporosis at one or more sites (T-score -2.5 or below). In untreated patients, the risk of osteoporotic fracture increases approximately two-fold for each 1.0 SD decrease in T-score. Low bone density is not the only risk factor for fracture; also consider factors such as patient's age, frailty or poor health, risk of falling, risk of injury, previous osteoporotic fracture, family history of osteoporosis, cigarette smoking, low body weight, etc. Not everyone with low bone mineral density has osteoporosis; osteomalacia and other metabolic bone disorders should also be considered. Patients who have osteoporosis should be evaluated for specific diseases and conditions (secondary causes) that may cause or contribute to bone loss. The [place] [employer]ocr[employer] (AACE) and National Osteoporosis Foundation (NOF) recommend pharmacologic intervention for all postmenopausal women whose T-score is in this range. The patient should follow a healthful lifestyle (good nutrition with adequate calcium and vitamin D, and appropriate weight-bearing exercise). Follow-Up: Consider a repeat BMD and Vertebral Fracture Assessment (VFA) exam in 2 years or sooner if medically necessary, to reassess this patient's status. Reported by: RIGO HANLEY M.D. on 06/12/2023 10:07:00 AM.
== END ==
PROVIDERS: PCP Internal Medicine; Referring Provider Internal Medicine; Visit Provider Internal Medicine
DX: Z12.31 Encounter for screening mammogram for malignant neoplasm of breast (principal); M81.0 Age-related osteoporosis without current pathological fracture
CPT/HCPCS: 77063; 77067; 77080

== ENCOUNTER → 2024-06-13 08:35 | Outpatient (CLI) | payer MEDICARE, SELFPAY ==
--- NOTE | 2024-06-13 08:37 | DI.MG.S_ITS ---
BILATERAL DIGITAL SCREENING MAMMOGRAM 3D/2D WITH CAD: 06/13/2024 CLINICAL: Routine screening. Comparison is made to exams dated: 06/12/2023 mammogram and 07/13/2021 mammogram - [facility]. The breasts are extremely dense, which lowers the sensitivity of mammography (category d />75% glandular tissue). Current study was also evaluated with a Computer Aided Detection (CAD) system. No significant masses, calcifications, or other findings are seen in either breast. Right breast scar marker. There has been no significant interval change. IMPRESSION: NEGATIVE There is no mammographic evidence of malignancy. A 1 year screening mammogram is recommended. Based on the Tyrer Cuzick model (a risk assessment model) the patient's lifetime risk is 14.5% and her 10 year risk is 9.3%. According to the ACR, ACS, and NCCN guidelines, an annual breast MRI exam along with mammogram is recommended if the patient's lifetime risk is 20% or greater. This exam was interpreted at Station ID: [id number]. NOTE: For mammograms, a report in lay terms will be sent to the patient. Approximately 15% of breast malignancies will not be visualized mammographically. In the management of a palpable breast mass, a negative mammogram must not discourage biopsy of a clinically suspicious lesion. Electronically Signed By: Dinesh Gay M.D. [facility] [place]/:06/13/2024 12:58:56 letter sent: Normal Exam ACR BI-RADS Category 1: Negative
== END ==
PROVIDERS: PCP Internal Medicine; Referring Provider Internal Medicine; Visit Provider Internal Medicine
DX: Z12.31 Encounter for screening mammogram for malignant neoplasm of breast (principal); R92.343 Mammographic extreme density, bilateral breasts
CPT/HCPCS: 77063; 77067

== ENCOUNTER → 2025-06-16 14:42 | Outpatient (CLI) | payer MEDICARE, SELFPAY ==
--- NOTE | 2025-06-16 14:43 | DI.RAD.S_ITS ---
PROCEDURE: XR DEXA AXIAL SKELETON INDICATIONS: Osteoporosis COMPARISON: [facility], , XR DEXA AXIAL SKELETON, 06/12/2023, 10:00. FINDINGS: Lumbar Spine: Bone mineral density 0.805 g/cm2, T score -2.2. There is interval 0.3% decrease in total lumbar spine bone mineral density. Left Femoral Neck: Bone mineral density 0.578 g/cm2, T score -2.4. There is interval 4.8% decrease in left femoral neck bone mineral density. Left Hip: Bone mineral density 0.725 g/cm2, T score -1.8. There is interval 4.2% decrease in left total hip bone mineral density. Fracture Risk Calculation (when applicable): 10-year fracture risk of a major osteoporotic fracture 21 percent and of a hip fracture 9.1 percent. (T score greater or equal to -1.0 to: NORMAL) (T score from -1.1 to -2.4: OSTEOPENIA) (T score less than or equal to -2.5: OSTEOPOROSIS) IMPRESSION: Osteopenia. Follow-up guidelines as follows: Osteoporosis: Consider a repeat DEXA and Vertebral Fracture Assessment (VFA) exam in 2 years or sooner if medically necessary, to reassess this patient's status. Osteopenia: Consider a repeat DEXA in 2-3 years to reassess this patient's status, or if there is a new clinical indication. Normal: Consider a repeat DEXA in 5 years or sooner, or if there is a new clinical indication. All treatment decisions require clinical judgment and consideration of individual patient factors, including patient preferences, comorbidities, previous drug use, risk factors not captured in the FRAX model (e.g., frailty, falls, vitamin D deficiency, increased bone turnover, interval significant decline in bone density ) and possible under- or over-estimation of fracture risk by FRAX. In addition, the NOF Guide recommends that FDA-approved medical therapies be considered in postmenopausal women and men age >= 50 years with a: * Hip or vertebral (clinical or morphometric) fracture * T-score of <=-2.5 at the spine or hip * Ten-year fracture probability by FRAX of >= 3% for hip fracture or >=20% for major osteoporotic fracture. Dictated by: Sami Panda M.D. on 06/16/2025 at 16:46 Approved by: Sami Panda M.D. on 06/16/2025 at 16:47
== END ==
LOC: RAD 14:43
PROVIDERS: PCP Internal Medicine; Referring Provider Internal Medicine; Visit Provider Internal Medicine
DX: M81.0 Age-related osteoporosis without current pathological fracture (principal)
CPT/HCPCS: 77080